=== PATIENT | male | born 1990 | race African-American/Black ===

== ENCOUNTER 2018-01-27 22:56 | Emergency (ER) | payer OTHER ==
--- NOTE | 2018-01-27 23:01 | PDOC ---
History of Present Illness - General Stated Complaint: CHEST PAIN Time Seen by Provider: 01/27/18 22:59 - History of Present Illness Initial Comments: 01/27/18 23:23 The patient is a 27 year old male with no significant PMH who presents for evaluation of chest pain. The patient reports a several day history of achy sternal chest pressure worse with movement. He report worsening pain today prompting his presentation to the ED for evaluation. He reports that he has had similar episodes in the past that have resolved without intervention. He otherwise denies fevers, chills, cough, SOB, nausea, vomiting, abdominal pain, or changes with urination or bowel movements. Past History - Past Medical History Home Medications: Ambulatory Orders NK [No Known Home Medication] 01/28/18 Review of Systems - Review of Systems Comments:: 01/27/18 23:25 Constitutional: No fevers, chills, fatigue, malaise HEENT: No Rhinorrhea, nasal congestion, visual changes Cardiovascular: Chest pain. No syncope, palpitations, lightheadedness Respiratory: No Cough, SOB, Hemoptysis, Gastrointestinal: No Abdominal pain, Nausea, Vomiting, Constipation, Diarrhea, Melena Genitourinary: No Dysuria, Frequency, Urgency, Hesitancy, Hematuria, Flank pain Musculoskeletal: No Myalgia, arthralgia Skin: No rashes, itching, bruising, pallor Neurologic: No Headache, Dizziness, Numbness, Weakness, or Tingling Psychiatric: No Hallucinations. No SI or HI *Physical Exam - Physical Exam Comments: 01/27/18 23:26 General Appearance: Nourished. No Apparent Distress HEENT: EOMI, ANA. No Pharyngeal Erythema, Tonsillar Exudate, Tonsillar Erythema Neck: No Cervical Lymphadenopathy Respiratory/Chest: Lungs Clear, Normal Breath Sounds. Mild Reproducible tenderness to palpation on exam along the sternal boarders. No Crackles, Rales , Rhonchi, Wheezing Cardiovascular: Regular Rhythm, Regular Rate. No Murmur, Gallops, Rubs Gastrointestinal/Abdominal: Normal Bowel Sounds, Soft. No Guarding, Rebound, Tenderness Musculoskeletal: No CVA Tenderness Extremity: Normal Capillary Refill Integumentary: Normal Color, Dry, Warm Neurologic: Fully Oriented, Alert, Normal Mood/Affect, Normal Response, Heart Score/ECG Review #1 ECG reviewed & interpreted by me at: 23:14 General ECG Interpretation: Sinus Rhythm, Normal Rate, Normal Intervals, No acute ischemic changes ED Treatment Course - LABORATORY CBC & Chemistry Diagram: 01/28/18 01:00 01/28/18 01:00 Medical Decision Making - Medical Decision Making 01/27/18 23:27 The patient is a 27 year old male with no significant PMH who presents for evaluation of chest pain. Differential includes but is not limited to: ACS, Arrhythmia, Pneumothorax, infectious, metabolic derangement. Given the patient' s history and physical exam, it is likely his symptoms are musculoskeletal in nature. However we will obtain a cbc, cmp, chest plain film and ekg to evaluate further. We will treat in the meantime with ibuprofen and continue to monitor and reassess while here in the ED. 01/28/18 00:47 cbc, cmp are unremarkable. Chest plain film is unremarkable as preliminarily read by ER physician. The patient reports improvement in his symptoms. We are comfortable discharging the patient home with primary care provider follow up at this time. We discussed the results, plan, and return precautions with the patient who voiced understanding and is agreeable with the plan. *DC/Admit/Observation/Transfer Diagnosis at time of Disposition: Chest pain Qualifiers: Chest pain type: unspecified Qualified Code(s): R07.9 - Chest pain, unspecified - Discharge Dispostion Disposition: HOME Condition at time of disposition: Stable Decision to Admit order: No - Referrals Referrals: Gurjit Klein MD [Staff Physician] - - Patient Instructions Printed Discharge Instructions: DI for Atypical Chest Pain Additional Instructions: Please return to the ER if you experience concerning or worsening symptoms including worsening chest pain, difficulty breathing or fevers. Your lab results were normal. Your chest xray was normal. You may use ibuprofen or tylenol at home to help manage your pain. Please call to schedule a follow up appointment with your primary care provider within 2-3 days to discuss your ER visit and further management of your symptoms. - Post Discharge Activity
[2018-01-27 23:11] VITALS: BP 122/70; PULSE 70; TEMP 98.3; BMI 23.7
[2018-01-27] MEDS ORDERED: IBUPROFEN 600 MG TABLET (FP) PO ONE ×2 (23:22→23:54)
--- NOTE | 2018-01-27 23:35 | PDOC ---
Attending Attestation - Resident Resident Name: Reza Trevino - ED Attending Attestation I have performed the following: I have examined & evaluated the patient, The case was reviewed & discussed with the resident, I agree w/resident's findings & plan - HPI HPI: 01/27/18 23:33 Pt comes with CP that began 2 days ago, no SOB. He has had similar episodes in the past, but this is different, as the pain is persistent x 2 days, No fevers and no PMHX. - Physicial Exam PE: 01/27/18 23:[address] [facility] resident exam. - Medical Decision Making 01/27/18 23:35 CXR pending; basic labs pending. EKG shows NSR; non specific anterior ST changes. 01/28/18 01:32 CXR normal; vitals normal; CBC normal. Chem pending <Rocio Barrera - Last Filed: 01/28/18 01:33> Heart Score/ECG Review - ECG Intrepretation Comment:: 01/27/18 23:39 Completed @23:08:52 Normal sinus rhythm Possible left atrial enlargement Cannot rule out anterior infarct, age undetermined Abnormal ECG Vent. rate 70 bpm OH interval 136 ms QRS duration 90 ms <Herminio Somers - Last Filed: 01/27/18 23:39>
[2018-01-28 01:11] LABS: BASO % 0.6 % (0-2.0); EOS % 0.9 % (0-4.5); HEMATOCRIT 44.8 % (35.4-49); HEMOGLOBIN 14.8 GM/dL (11.7-16.9); MCH 29.8 pg (25.7-33.7); MCHC 33.1 g/dl (32.0-35.9); MEAN CELL VOLUME 90.2 fl (80-96); MEAN PLT VOLUME 8.4 fl (7.5-11.1); MONO % 8.3 % (3.8-10.2); NEUT % 59.2 % (42.8-82.8); PLATELET COUNT 258 K/MM3 (134-434); RBC 4.97 M/mm3 (4.00-5.60); WHITE BLOOD COUNT 8.9 K/mm3 (4.0-10.0)
[2018-01-28 01:42] LABS: ALBUMIN 4.2 g/dl (3.4-5.0); ANION GAP 7 (8-16); BLOOD UREA NITROGEN 13 mg/dL (7-18); CALCIUM 9.7 mg/dL (8.5-10.1); CHLORIDE 105 mmol/L (98-107); CO2 29 mmol/L (21-32); CREATININE 1.2 mg/dL (0.7-1.3); GLUCOSE,RANDOM 96 mg/dL (74-106); POTASSIUM 4.2 mmol/L (3.5-5.1); SGOT/AST 20 U/L (15-37); SGPT/ALT 21 U/L (12-78); SODIUM 141 mmol/L (136-145)
[2018-01-28 01:44] LABS: ALK PHOS 66 U/L (45-117); BILIRUBIN,TOTAL 0.6 mg/dL (0.2-1.0); TOT PROT 7.7 g/dl (6.4-8.2)
--- NOTE | 2018-01-29 22:22 | EKG ---
Test Reason : Blood Pressure : / mmHG Vent. Rate : 070 BPM Atrial Rate : 070 BPM P-R Int : 136 ms QRS Dur : 090 ms QT Int : 396 ms P-R-T Axes : 077 075 055 degrees QTc Int : 427 ms NORMAL SINUS RHYTHM POSSIBLE LEFT ATRIAL ENLARGEMENT CANNOT RULE OUT ANTERIOR INFARCT , AGE UNDETERMINED ABNORMAL ECG NO PREVIOUS ECGS AVAILABLE Confirmed by JENY SOL MD ([id number]) on 01/29/2018 10:21:50 PM Referred By: Confirmed By:JENY SOL MD
== END 2018-01-28 01:59 | disposition home or self-care (01) ==
LOC: JER 22:56
DX: R07.9 Chest pain, unspecified (principal)
CPT/HCPCS: 36415; 71046-TC-FY; 80053; 85025; 93005; 93010; 99282-25

== ENCOUNTER 2021-03-12 16:29 | Emergency (ER) | payer OTHER ==
[2021-03-12 16:35] VITALS: BP 124/78; PULSE 91; TEMP 98.3; BMI 24.4
[2021-03-12] MEDS ORDERED: KETOROLAC TROMETHAMINE 30 MG/1 ML VIAL IM ONE (17:20)
[2021-03-12] MEDS ORDERED: METHOCARBAMOL 500 MG TABLET PO ONE (17:20)
[2021-03-12] MEDS ORDERED: METHOCARBAMOL 500 MG TABLET ONE (17:24)
[2021-03-12] MEDS ORDERED: KETOROLAC TROMETHAMINE 30 MG/1 ML VIAL ONE (17:24)
== END 2021-03-12 18:16 | disposition home or self-care (01) ==
LOC: JERFT 16:29
PROC: 3E0233Z Introduction of Anti-inflammatory into Muscle, Percutaneous Approach (ICD-10-PCS; principal; 2021-03-12)
DX: M25.511 Pain in right shoulder (principal); S39.012A Strain of muscle, fascia and tendon of lower back, initial encounter
CPT/HCPCS: 72100-TC-FY; 73030-TC-RT-FY; 99284-25